=== PATIENT | male | born 1955 | race Caucasian/White ===

== ENCOUNTER 2017-09-13 14:49 | Emergency (ER) | payer OTHER ==
[~2017-09-13] VITALS: Ht 177.8 cm; Wt 95.6 kg
[~2017-09-13 14:49] MED LIST: etomidate 2mg/ml inj. ONE
[2017-09-13 15:33] LABS: BASOPHILS % (AUTO) 0.4 % (0-1); EOSINOPHILS # (AUTO) 0.2 X10'3 (0-0.9); EOSINOPHILS % (AUTO) 2.1 % (0-6); HEMATOCRIT 56.4 % (42.0-52.0); LYMPHOCYTES # (AUTO) 1.2 X10'3 (1.1-4.8); LYMPHOCYTES % (AUTO) 16.3 % (21-51); MEAN CORPUSCULAR HEMOGLOBIN 29.7 PG (27.0-31.0); MEAN CORPUSCULAR HGB CONC 32.7 % (33.0-36.5); MEAN CORPUSCULAR VOLUME 90.9 FL (78-98); MEAN PLATELET VOLUME 8.3 FL (7.4-10.4); MONOCYTES # (AUTO) 0.4 X10'3 (0-0.9); MONOCYTES % (AUTO) 5.7 % (2-12); NEUTROPHILS # (AUTO) 5.6 X10'3 (1.8-7.7); NEUTROPHILS % (AUTO) 75.5 % (42-75); PLATELET COUNT 177 X10'3 (140-440); RED BLOOD COUNT 6.21 X10'6 (4.70-6.10); RED CELL DISTRIBUTION WIDTH 15.8 % (11.5-14.5); WHITE BLOOD COUNT 7.4 X10'3 (4.5-11.0)
[2017-09-13 15:36] LABS: HEMOGLOBIN 18.5 g/dl (14.0-17.9)
[2017-09-13] MEDS ORDERED: morphine 4 MG/ML inj SYRINge IV ONE (15:45)
[2017-09-13] MEDS ORDERED: furosemide 10 MG/1 ML 10ml inj IV ONE (15:45)
[2017-09-13 15:47] LABS: ALANINE AMINOTRANSFERASE 113 U/L (12-78); ALBUMIN/GLOBULIN RATIO 0.7 (1.1-1.5); ALKALINE PHOSPHATASE 147 IU/L (46-116); ANION GAP 10 (8-16); ASPARTATE AMINO TRANSFERASE 93 U/L (10-37); BILIRUBIN,TOTAL 1.5 MG/DL (0.1-1.0); BLOOD UREA NITROGEN 25 MG/DL (7-18); BUN/CREATININE RATIO 17.5 (5.4-32.0); CALCIUM 8.5 MG/DL (8.5-10.1); CHLORIDE 102 MMOL/L (99-107); CREATININE 1.43 MG/DL (0.60-1.10); GLUCOSE 107 MG/DL (70-104); SODIUM 136 MMOL/L (135-145); TOTAL PROTEIN 7.4 G/DL (6.4-8.2); eGFR 50 ML/MIN
[2017-09-13 15:55] LABS: POTASSIUM 4.6 MMOL/L (3.5-5.1)
[2017-09-13] MEDS ORDERED: normal saline 1000ml 1,000 ML IV ONE (16:15)
[2017-09-13] MEDS ORDERED: normal saline 1000ML IV soln IVB ONE (16:15)
[2017-09-13] MEDS ORDERED: CefTRIAXone/D5W-Rocephin 1gm 50 ML IV ONE (16:15)
[2017-09-13] MEDS ORDERED: iohexol 350MG/ML 100ml bottle IV ONE (16:37)
[2017-09-13] MEDS: nitroGLYCERIN-Tridil 50MG/D5W 250 ML IV PRN (17:28)
[2017-09-13] MEDS ORDERED: labetalol 20mg/4ml (5mg/ml) syringe IV ONE (17:30)
[2017-09-13 18:05] LABS: ABG BASE EXCESS -4.3 mmol/L (-2.0-3.0); ABG HCO3 17.8 mmol/L (22.0-26.0); ABG OXYGEN SATURATION 88.8 % (95-98); ABG PCO2 (T) 27.6 mmHg (35.0-48.0); ABG PH (T) 7.428 (7.350-7.450); ABG PO2 (T) 52.9 mmHg (83-108); ALLEN'S TEST Positive; FCOHb 0.3 % (0.5-1.5); FLOW 100 L/min; FMetHb 0.3 % (0.3-1.12); FO2Hb 88.3 % (94-100); TOTAL HEMOGLOBIN 19.5 G/dl (14.0-18.0)
[2017-09-13] MEDS ORDERED: succinylcholine 20mg/ml inj IV ONE (18:38)
[2017-09-13 19:51] LABS: ABG BASE EXCESS -3.4 mmol/L (-2.0-3.0); ABG HCO3 19.7 mmol/L (22.0-26.0); ABG OXYGEN SATURATION 88.3 % (95-98); ABG PCO2 (T) 30.6 mmHg (35.0-48.0); ABG PH (T) 7.422 (7.350-7.450); ALLEN'S TEST Positive; FCOHb 0.2 % (0.5-1.5); FMetHb 0.3 % (0.3-1.12); FO2Hb 87.9 % (94-100); MINUTE VOLUME 15 L/min; PATIENT TEMPERATURE 36.3; RESPIRATORY RATE 20 b/min; RESPIRATORY RATE (OBSERVED) 24 b/min; TOTAL HEMOGLOBIN 19.6 G/dl (14.0-18.0)
[2017-09-13] MEDS ORDERED: piperacillin/tazo 3.375gm/50ml 50 ML IV ONE (22:35)
[2017-09-13] MEDS ORDERED: heparin 10,000 units/1 ML INJ IV PRN (22:35)
[2017-09-13] MEDS ORDERED: heparin 10,000 units/1 ML INJ IV ONE (22:35)
[2017-09-14] MEDS: nitroGLYCERIN-Tridil 50MG/D5W 250 ML IV PRN ×4 (01:15→04:50)
[2017-09-14 03:47] LABS: BASOPHILS % (AUTO) 0.6 % (0-1); EOSINOPHILS # (AUTO) 0.1 X10'3 (0-0.9); EOSINOPHILS % (AUTO) 1.5 % (0-6); HEMATOCRIT 55.5 % (42.0-52.0); LYMPHOCYTES # (AUTO) 1.5 X10'3 (1.1-4.8); LYMPHOCYTES % (AUTO) 18.5 % (21-51); MEAN PLATELET VOLUME 8.6 FL (7.4-10.4); MONOCYTES # (AUTO) 0.6 X10'3 (0-0.9); NEUTROPHILS # (AUTO) 5.8 X10'3 (1.8-7.7); NEUTROPHILS % (AUTO) 72.4 % (42-75); PLATELET COUNT 156 X10'3 (140-440); RED CELL DISTRIBUTION WIDTH 15.9 % (11.5-14.5)
[2017-09-14 03:50] LABS: HEMOGLOBIN 18.3 g/dl (14.0-17.9)
[2017-09-14 04:05] LABS: URINE AMPHETAMINE SCREEN POSITIVE (Neg); URINE BARBITUATE SCREEN NEGATIVE (Neg); URINE BENZODIAZEPINES SCREEN NEGATIVE (Neg); URINE CANNABINOID SCREEN NEGATIVE (Neg); URINE COCAINE SCREEN NEGATIVE (Neg); URINE METHADONE SCREEN NEGATIVE (Neg); URINE OPIATE SCREEN POSITIVE (Neg); URINE PHENCYCLIDINE SCREEN NEGATIVE (Neg)
[2017-09-14] MEDS ORDERED: labetalol 20mg/4ml (5mg/ml) syringe IV ONE (05:00)
[2017-09-14 06:10] VITALS: BP 112/77
== END 2017-09-14 06:41 | disposition short-term general hospital (02) ==
LOC: ER 14:50
DX: J96.90 Respiratory failure, unspecified, unspecified whether with hypoxia or hypercapnia (principal); I50.810 Right heart failure, unspecified; I27.20 Pulmonary hypertension, unspecified; R91.1 Solitary pulmonary nodule; K40.90 Unilateral inguinal hernia, without obstruction or gangrene, not specified as recurrent; F15.10 Other stimulant abuse, uncomplicated
CPT/HCPCS: 36415; 36600; 71046; 71275; 80053; 80305; 82140; 82803; 83605; 83735; 83880; 84145; 84484; 85018; 85025; 85730; 87040; 93005; 93306; 93970; 94660; 96361; 96365; 96368; 96375; 99291; 99292; C1758; J0696; J1644; J1940; J2270; J2543; J3490; J7030; Q9967; J0330